=== PATIENT | female | born 1960 | race Two or more races ===

== ENCOUNTER 2025-03-05 15:10 | Emergency (ER) | payer BC, SELFPAY ==
[2025-03-05 15:11] VITALS: BMI 23.0
[2025-03-05 15:22] VITALS: BP 190/121; PULSE 89; RESP 18; TEMP 37.2; O2SAT 98
--- NOTE | 2025-03-05 15:35 | EKG_ITS ---
[facility] Test Date: 2025-03-05 Pat Name: JOHN ARVIZU Department: Room: - Gender: Female [employer]: : 1960 Requested By: Jenifer Candelario Order Number: [id number] Reading MD: Jenifer Candelario Measurements Intervals [place] Rate: 77 P: 53 SD: 157 QRS: 6 QRSD: 76 T: 69 QT: 368 QTc: 419 Interpretive Statements SINUS RHYTHM POSSIBLE LEFT ATRIAL ENLARGEMENT [-0.1mV P-WAVE IN V1/V2] POSSIBLE RIGHT VENTRICULAR CONDUCTION DELAY [RSR (QR) IN V1/V2] No previous ECG available for comparison /[email or web address]/[id number]
--- NOTE | 2025-03-05 15:35 | XR_ITS ---
Examination: CT brain head without contrast. 2-D sagittal coronal reconstructions Date and time of exam:March 05, 2025, 1547 hrs. Indications: High blood pressure with headache today CTDI: vol (mGy):46.8. DLP: (mGycm):882. Technique: Multiple CT axial sections of the brain have been obtained, 5 mm slice thickness. Contrast has not been administered. 2-D sagittal, coronal reconstructions have been obtained Low dose protocols were performed. One or more of the following dose reduction techniques were used; automated exposure control, adjustment of the mA and/or KV according to patient size, use of iterative reconstruction technique. Findings: No significant ventricular enlargement. Intra-axial or extra-axial hemorrhage density is not seen. No mass effect or midline shift Basal cisterns are not remarkable. Fourth ventricle is midline. Cranial vault intact. Impression: Negative for acute hemorrhage, mass effect or midline shift
--- NOTE | 2025-03-05 15:35 | XR_ITS ---
Examination: AP chest single view Technique: Upright AP portable chest single view Date and time: March 05, 2025 1609 hrs. Indications: Headaches hypertension episodes beginning 4 days ago. Findings: Mild prominence of ventricle. No pneumonia or pulmonary edema. Moderate osteopenia Impression: No pneumonia or pulmonary edema.
--- NOTE | 2025-03-05 15:37 | PD.EDHA ---
ED Headache RME/HPI General Chief Complaint: Headache Stated Complaint: RUIZ AND HIGH BP FOR 5 DAYS Time Seen by Provider: 03/05/25 15:35 Arrival date/time: 03/05/25 15:10 RME / HPI RME / HPI Narrative: 64-year-old female patient with no significant past medical history, came in for evaluation regarding headache. Patient's been having headache for several days, severity moderate, described as pulsating. Patient also was noted to have elevated blood pressure for several days now according to the family's been having blood pressure above 160 all the time. Patient is currently not seeing any doctor or have a PCP for several years now. Patient denies any chest pain denies any abdominal pain denies any neck pain denies any other complaints no medication was taken prior to arrival about. Patient family is also complaining of anxiety-like symptoms. Not taking any medication. She had a scheduled dental extraction next week and she is now very anxious thinking about the procedure. Patient is ambulatory. Denies any focal neurologic deficit. Related Data Previous Rx's ?Medication ?Instructions ?Recorded amlodipine 5 mg tablet (Norvasc) 5 mg PO QDAY #30 tabs 03/05/25 diazepam 5 mg tablet (Valium) 5 mg PO BID PRN anxiety #10 tabs 03/05/25 lisinopril 10 mg tablet 10 mg PO QDAY #30 tabs 03/05/25 Allergies Allergy/AdvReac Type Severity Reaction Status Date / Time amoxicillin Allergy Severe rash Verified 03/05/25 15:13 Sulfa (Sulfonamide Allergy Severe Rash Verified 03/05/25 15:13 Antibiotics) Review of Systems Review of Systems Narrative Review of Systems: Review of system reviewed and within normal limits except mentioned in HPI ED Exam Narrative Physical exam: VITAL SIGNS: Reviewed. GENERAL APPEARANCE: Alert and interactive, follows commands, no acute distress, HEAD AND FACE: Non-traumatic. ENT: PERRL, pink conjunctivitis, eyelid no trauma, Mucous membrane moist. NECK: Supple, nontender, no nuchal rigidity. CHEST: No tenderness, no crepitus, no paradoxical movement, no retractions. LUNGS: Clear, well ventilated, symmetric, no rales, no wheezing, no ronchi, no stridor, good breath sounds bilaterally. HEART: Regular rate, regular rhythm, no murmur, no gallops. ABDOMEN: Soft, positive bowel sounds, nondistended, no guarding, nontender, no rebound, no masses, RECTAL: Deferred. GENITAL: Deferred. NEUROLOGICAL: Gross motor function intact sensory function intact, Appropriate for age. MUSCULOSKELETAL: low back nontender, full range of motion. EXTREMITIES: Nontender, full range of motion. SKIN: Color pink, dry, no rash, no lacerations, no abrasions, no contusions. LYMPHATICS: Deferred. Course Quality Measures none Orders Category Date Time Status EKG (ED ONLY) *Do not use* NOW Care 03/05/25 15:[address] head/brain wo con Stat Exams 03/05/25 15:35 Completed EKG (ED Only) Stat Exams 03/05/25 15:35 Draft XR chest 1V Stat Exams 03/05/25 15:35 Completed CBC Stat Lab 03/05/25 16:02 Completed Comprehensive Metabolic Panel Stat Lab 03/05/25 16:02 Completed Partial Thromboplastin Time Stat Lab 03/05/25 16:02 Completed Prothrombin Time with INR Stat Lab 03/05/25 16:02 Completed Troponin I Stat Lab 03/05/25 16:02 Completed Urinalysis, C/S if Indicated Stat Lab 03/05/25 16:20 Completed Acetaminophen Tab [Tylenol ES Tab] Med 03/05/25 15:35 Discontinued 1,000 mg PO X1 ONE Ketorolac Inj [Toradol Inj] Med 03/05/25 17:18 Discontinued 30 mg IM X1 ONE cloNIDine HCL [Catapres] Med 03/05/25 17:36 Discontinued 0.1 mg PO X1 ONE hydrALAZINE HCL [Apresoline] Med 03/05/25 15:35 Discontinued 50 mg PO X1 ONE Vital Signs Vital signs: Vital Signs Temperature 98.9 F 03/05/25 15:22 Pulse Rate 89 03/05/25 15:22 Respiratory Rate 18 03/05/25 15:22 Blood Pressure 190/121 H 03/05/25 15:22 Pulse Oximetry (%) 98 03/05/25 15:22 Oxygen Delivery Method Room Air 03/05/25 15:22 Headache MDM Narrative MDM Narrative:: 64-year-old female patient with no significant past medical history, came in for evaluation regarding headache. Patient's been having headache for several days, severity moderate, described as pulsating. Patient also was noted to have elevated blood pressure for several days now according to the family's been having blood pressure above 160 all the time. Patient is currently not seeing any doctor or have a PCP for several years now. Patient denies any chest pain denies any abdominal pain denies any neck pain denies any other complaints no medication was taken prior to arrival about. Patient family is also complaining of anxiety-like symptoms. Not taking any medication. She had a scheduled dental extraction next week and she is now very anxious thinking about the procedure. Patient is ambulatory. Denies any focal neurologic deficit Patient's workup today came back unremarkable including troponin which is normal. CT scan of the head came back unremarkable. Chest x-ray came back unremarkable.. EKG showed normal sinus rhythm, ventricular rate of 77 bpm, no ST elevation or depression noted. Patient received hydralazine, blood pressure still 192/81 after hydralazine, I added clonidine, latest blood pressure was noted to be 169/83 Patient will be sent home on blood pressure medications Patient data External records reviewed:: None Clinical information provided by:: patient Social determinants that could affect healthcare access:: none Patient has the following chronic illnesses:: None How is presenting disease/condition affected by chronic disease/condition?: no chronic disease Evaluation data The following diagnostics were reviewed and interpreted by me:: lab results, radiology exam(s) and EKG tracing(s) Lab and/or radiology exams considered but not ordered:: None Interpretation Summary: See results in [facility] Medications / Prescriptions Medications or Prescriptions considered but not ordered:: None Medication administrations:: Medication Administration History Discontinued Medications Acetaminophen (Acetaminophen 500 Mg Tablet) 1,000 mg PO X1 ONE Stop: 03/05/25 15:36 Last Admin: 03/05/25 15:59 Dose: 1,000 mg Documented By: OA Clonidine (Clonidine Hcl 0.1 Mg Tablet) 0.1 mg PO X1 ONE Stop: 03/05/25 17:37 Last Admin: 03/05/25 17:41 Dose: 0.1 mg Documented By: OA Hydralazine HCl (Hydralazine Hcl 25 Mg Tablet) 50 mg PO X1 ONE Stop: 03/05/25 15:36 Last Admin: 03/05/25 16:00 Dose: 50 mg Documented By: OA Ketorolac Tromethamine (Ketorolac Inj 60 Mg/2 Ml Vial) 30 mg IM X1 ONE Stop: 03/05/25 17:19 Last Admin: 03/05/25 17:42 Dose: Not Given Documented By: OA Non-Admin Reason: Patient Refused Toradol, Tylenol, clonidine Consultations Consultation(s) initiated? (list below): No Diagnosis Differential diagnosis headache: headache and other (Anxiety, headache) Most likely diagnosis given after review of the tests above:: anxiety, headache, hypertension Admission Indicated Admission indicated?: not indicated Admission Request Was there a request for admission?: No Disposition Plan Disposition Plan: Discharge Discharge Attestation Discharge Attestation: The patient and all family members were given an opportunity to ask questions and understood the discharge instructions. Discharge instructions specifically effects, indications for sooner follow up or return to the emergency department, and the expected course of current diagnosis. Patient condition: Stable Discharge Plan Plan Patient Disposition: HOME (Self Care) Discharge Disposition comment: stable Prescriptions/Referrals Prescriptions/Med Rec: New diazepam [Valium] 5 mg tablet 5 mg PO BID PRN (Reason: anxiety) Qty: 10 0RF lisinopril 10 mg tablet 10 mg PO QDAY Qty: 30 0RF amlodipine [Norvasc] 5 mg tablet 5 mg PO QDAY Qty: 30 0RF Referrals: No Primary/Family,Physician [Primary Care Provider] - In 1 week Problem List Clinical Impression: Headache, Anxiety, HTN (hypertension) Patient/Caregiver Discharge Instructions Discharge Activity: activity as tolerated Education Materials: Self-Care for Headaches Print Language: Syrian Stand Alone Forms: Enriqueta Award Info., Patient Portal Info Letter PA/ANISHA Supervising Physician RASHMI/ANISHA Supervising Physician: MD Renee
[2025-03-05] MEDS: ACETAMINOPHEN 500 MG TABLET 1000 MG PO (15:59)
[2025-03-05 16:00] VITALS: BP 190/121; PULSE 89
[2025-03-05 16:09] LABS: Basophils # (Auto) 0.0 Thou/mm3 (0.0-0.2); Basophils % (Auto) 1 % (0-2.5); Eosinophils # (Auto) 0.1 Thou/mm3 (0.0-0.5); Eosinophils % (Auto) 1 % (0-10); Hematocrit 37.5 % (36.0-46.0); Hemoglobin 12.5 g/dL (12.0-16.0); Immature Granulocytes Auto 0.01 Thou/mm3 (0.00-0.00); Lymphocytes # (Auto) 1.5 Thou/mm3 (1.0-4.8); Lymphocytes % (Auto) 25 % (10-50); Mean Corpuscular HGB Conc 33.3 g/dl (31.0-37.0); Mean Corpuscular Hemoglobin 28.5 pg (25.0-35.0); Mean Corpuscular Volume 86 fL (80-100); Monocytes # (Auto) 0.4 Thou/mm3 (0.0-0.8); Monocytes % (Auto) 7 % (0-12); Neutrophils # (Auto) 4.0 Thou/mm3 (1.8-7.7); Neutrophils % (Auto) 67 % (37-80); Nucleated Red Blood Cell # 0.00 Thou/mm3 (0.00-0.00); Nucleated Red Blood Cell % 0 /100 WBC (0); Platelet Count 312 Thou/mm3 (140-440); RDW Standard Deviation 37.8 fL (36.4-46.3); Red Blood Count 4.38 Miln/mm3 (4.00-5.20); White Blood Count 6.0 Thou/mm3 (3.6-11.0)
[2025-03-05 16:38] LABS: Collection Type, Urine Clean Catch
[2025-03-05 16:39] LABS: Alanine Aminotransferase 10 U/L (10-49); Albumin, Serum 4.5 gm/dL (3.4-4.8); Albumin/Globulin Ratio 1.6 (1.2-2.2); Alkaline Phosphatase 71 U/L (46-116); Anion Gap 9 (7-16); Aspartate Amino Transferase 15 U/L (0-34); BUN/Creatinine Ratio 18 Ratio (12-20); Bilirubin,Total 0.3 mg/dL (0.3-1.2); Blood Urea Nitrogen 18 mg/dL (9-23); Calcium 9.2 mg/dL (8.3-10.6); Calcium (Corrected) 9.2 mg/dL (8.5-10.1); Carbon Dioxide 29.5 mMol/L (20.0-31.0); Chloride 104 mMol/L (98-107); Creatinine (Component) 1.0 mg/dL (0.6-1.3); Estimated Creatinine Clearance 47.0 mL/min (>60); Globulin 2.9 gm/dL (2.3-3.5); Glucose 108 mg/dL (74-106); Osmolality,Calculated 286 (275-295); Potassium 3.6 mMol/L (3.4-5.1); Sodium 142 mMol/L (136-145); Total Protein 7.4 gm/dL (5.7-8.2); Troponin I < 0.020 ng/mL (0.0-0.045); eGFR > 60 See Note
[2025-03-05 16:47] LABS: INR 1.0 (0.9-1.3); Partial Thromboplastin Time 25.1 Seconds (22.0-36.0); Prothrombin Time 10.9 Seconds (9.0-12.2)
[2025-03-05 17:07] LABS: Bilirubin,Urine Negative (Negative); Blood,Urine 1+ (Negative); Clarity,Urine Clear (Clear/Hazy); Color,Urine Lt-Yellow (Lt Yel-Yel); Culture Indicated,Urine Not Indicated; Glucose, Urine Negative (Negative); Ketones,Urine Negative (Negative); Leukocyte Esterase,Urine Negative (Negative); Nitrite,Urine Negative (Negative); PH,Urine 6.0 (5.0-7.0); Protein,Urine Trace (Neg - Trace); RBC,Urine 1 /hpf (0-3); Specific Gravity,Urine 1.031 (1.001-1.035); Squamous Epithelial Cell,Urine < 1 /hpf (0-5); Urobilinogen,Urine Negative mg/dL (0.0-1.0); WBC,Urine 1 /hpf (0-5)
[2025-03-05 17:29] VITALS: BP 191/81; PULSE 83
[2025-03-05 17:41] VITALS: BP 191/81; PULSE 83
[2025-03-05 18:04] VITALS: BP 169/83; PULSE 70; RESP 18; O2SAT 100
== END 2025-03-05 18:41 | disposition home or self-care (01) ==
PROVIDERS: Nurse Practitioner Family; Emergency Provider Emergency Medicine
DX: F41.9 Anxiety disorder, unspecified (principal); I10 Essential (primary) hypertension; R51.9 Headache, unspecified
CPT/HCPCS: 36415; 70450; 71045; 80053; 81001; 84484; 85025; 85610; 85730; 93005; 99283; A9270